=== PATIENT | female | born 1965 | race Caucasian/White ===

== ENCOUNTER 2016-09-30 12:45 | Emergency (ER) | payer OTHER ==
[~2016-09-30] VITALS: Ht 170.2 cm; Wt 77.1 kg
--- NOTE | 2016-09-30 13:39 | ED CARDIAC/CP/PALPITATIONS ---
See Addendum History of Present Illness General Chief Complaint: Chest Pain Stated Complaint: CP Source: patient Exam Limitations: no limitations Vital Signs & Intake/Output Vital Signs & Intake/Output Vital Signs Date Time Temp Pulse Resp B/P B/P Pulse O2 O2 Flow FiO2 Mean Ox Delivery Rate 09/30 1856 98.6 81 18 120/62 98 Room Air 09/30 1750 98.5 84 18 121/58 98 Room Air 09/30 1253 97.5 80 16 146/84 99 Room Air Allergies Coded Allergies: No Known Allergies (09/30/16) Reconcile Medications No Known Home Medications Triage Note: PT STATES SHE IS HAVING CHEST PAIN AND STATES SHE FEELS LIKE HER HEART IS SPEADING UP AND SLOWING DOWN. PT DENIES SOB OR DIAPHORESIS BUT DID FEEL SOB. PAIN DID NOT RADIATE Triage Nurses Notes Reviewed? yes Onset: Abrupt Duration: hour(s): (1130 am), intermittent Timing: recent history Location: central Radiation: no radiation Activities at Onset: none HPI: 50-year-old female comes into emergency room with complaints of chest pain has been going on intermittently since about 11:30 AM this morning. Pain is sharp. pain nonRadiating. Denies any arm pain or neck pain or jaw pain. Denies any shortness of breath or prior cardiac history. Denies any past medical history. Nonsmoker. Denies any significant family history for any type of coronary disease less than 55 years of age. Patient reports that she was sitting at the computer when the pain began. Exertion does not seem to make it worse. Patient was given 2 full-strength aspirins. (TUSHAR JOSÉ) Past History Travel History Traveled to [place] past 21 day No Medical History Any Pertinent Medical History? none Surgical History Surgical History: non-contributory Psychosocial History What is your primary language Moh[place] Tobacco Use: Never used ETOH Use: occasional use Illicit Drug Use: denies illicit drug use Family History Hx Contributory? Yes (see hpi) (TUSHAR JOSÉ) Review of Systems Review of Systems Constitutional: Reports: no symptoms. EENTM: Reports: no symptoms. Respiratory: Reports: no symptoms. Cardiovascular: Reports: see HPI. GI: Reports: no symptoms. Genitourinary: Reports: no symptoms. Musculoskeletal: Reports: no symptoms. Skin: Reports: no symptoms. Neurological/Psychological: Reports: no symptoms. Hematologic/Endocrine: Reports: no symptoms. Immunologic/Allergic: Reports: no symptoms. All Other Systems: Reviewed and Negative (TUSHAR JOSÉ) Physical Exam Physical Exam General Appearance: well developed/nourished, no apparent distress, alert, awake Head: atraumatic, normal appearance Eyes: Bilateral: normal appearance, EOMI. Ears, Nose, Throat: normal pharynx, normal ENT inspection, hearing grossly normal Neck: normal inspection, full range of motion Respiratory: normal breath sounds, no respiratory distress Cardiovascular: regular rate/rhythm Gastrointestinal: soft Back: normal inspection Extremities: normal inspection, normal range of motion, no edema Neurologic/Psych: awake, alert, oriented x 3, normal gait, normal mood/affect Skin: intact, normal color Core Measures ACS in differential dx? Yes Severe Sepsis Present: No Septic Shock Present: No (TUSHAR JOSÉ) Progress Differential Diagnosis: AMI, aortic dissection, atrial fibrillation, cholecystitis, costochondritis, hyperkalemia, hypovolemia, musculoskeletal pain, myocarditis, pancreatitis, pericarditis, pneumonia, pneumothorax, pulmonary embolism, PUD/GERD, PVCs/PACs, respiratory failure, rib fracture, sepsis, unstable angina, V-fib/V-Tach, WPW syndrome Plan of Care: Orders Procedure Date/time Status TROPONIN LEVEL 09/30 1745 Complete EKG 09/30 1745 Active Telemetry/Automotive Mechanic 09/30 1338 Active D-DIMER 09/30 1338 Complete TROPONIN LEVEL 09/30 1257 Complete COMPREHENSIVE METABOLIC PANEL 09/30 1257 Complete CBC WITHOUT DIFFERENTIAL 09/30 1257 Complete EKG 09/30 1245 Active Laboratory Tests 09/30/16 1749: Troponin I < 0.01 09/30/16 1345: Anion Gap 12, Estimated GFR > 60, BUN/Creatinine Ratio 15.7, Glucose 78, Calcium 9.2, Total Bilirubin 0.8, AST 22, ALT 39, Alkaline Phosphatase 63, Troponin I < 0.01, Total Protein 7.3, Albumin 4.6, Globulin 2.7, Albumin/Globulin Ratio 1.7, D-Dimer < 200 09/30/16 1257: CBC w Diff NO MAN DIFF REQ, RBC 4.51, MCV 90.1, MCH 30.6, RDW 12.7, MPV 8.8, Gran % 68.5, Lymphocytes % 21.0, Monocytes % 9.0, Eosinophils % 1.2, Basophils % 0.3, Absolute Granulocytes 4.1, Absolute Lymphocytes 1.3, Absolute Monocytes 0.5 , Absolute Eosinophils 0.1, Absolute Basophils 0, PUBS MCHC 34.0 Diagnostic Imaging: Viewed by Me: Radiology Read. Discussed w/RAD: Radiology Read. Radiology Impression: SERVICE DATE: 09/30/16 EXAM TYPE: RAD - XRY-CHEST XRAY, PA AND LATERAL EXAMINATION: XR CHEST CLINICAL INFORMATION: Chest pain COMPARISON: None TECHNIQUE: 2 views of the chest were obtained. FINDINGS: Lungs are well expanded and clear. No pulmonary edema, pneumothorax or pleural effusion. Cardiac silhouette is normal in size. Mediastinal and hilar contours are normal. Bones are unremarkable. IMPRESSION: No acute cardiopulmonary abnormality. DICTATED BY: COLE JENNINGS MD DATE/TIME DICTATED:09/30/161440 STUDIO TECHNICIAN VIDEO OPERATOR:DAYAMI DATE/TIME TRANSCRIBED:09/30/161440 Initial ED EKG: normal intervals, normal p-waves, normal QRS complex, normal sinus rhythm, rate (100) Comments: 09/30/2016 4:46:04 PM Upon reevaluating the patient she is currently and no chest pain. Case was discussed with Dr. Kang from cardiology. He agrees with plan of care of 2 EKGs and 2 troponins. Patient can follow-up with Dr. Rock in the office this week. 09/30/2016 7:50:30 PM Patient is still chest pain-free. Second troponin negative. Case discussed with Dr. Busby. Patient will follow up as an outpatient this week. Return if any other concerns. 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 Return to the emergency room if any concerns worsening symptoms. Please go over all results of today's visit with your primary care doctor. Contact your primary care doctor to let them know you were here in the emergency room. There may be nonspecific findings which may not be related to your visit today here in the emergency room but may require further evaluation and chronic monitoring by your primary care doctor. If you had a laceration today the chance of foreign body always remains. You should follow-up with your primary care doctor for recheck in 3-5 days for a wound check. If you had an x-ray done there is a chance that a fracture could have been missed on initial read and you should follow-up with your primary care doctor for repeat x-rays if symptoms persist. If your blood pressure was elevated here in the emergency room please have rechecked by her primary care doctor within the next 48 hours by your primary care doctor. If you were prescribed a narcotic here in the emergency room or any type of controlled substances you're not allowed to drive while taking this medication or operate any type of heavy machinery. Narcotics can make you feel lightheaded dizziness nausea and can cause constipation. You may need to rock picker a stool softener. Thank you for choosing [facility] emergency room. Please return to the emergency room immediately if you have any other concerns worsening of symptoms. Departure Forms: Customer Survey General Discharge Information Prescriptions: Current Visit Scripts No Known Home Medications (TUSHAR JOSÉ) PA/AUTOMATIC CENTRIFUGAL STATION OPERATOR Co-Sign Statement Statement: ED Attending supervision documentation- [] I saw and evaluated the patient. I have also reviewed all the pertinent lab results and diagnostic results. I agree with the findings and the plan of care as documented in the PA's/AUTOMATIC CENTRIFUGAL STATION OPERATOR's documentation. [X] I have reviewed the ED Record and agree with the PA's/AUTOMATIC CENTRIFUGAL STATION OPERATOR's documentation. [] Additions or exceptions (if any) to the PAs/AUTOMATIC CENTRIFUGAL STATION OPERATOR's note and plan are summarized below: [] (GALILEA NORTH,REZA Pierre) Critical Care Note Critical Care Note Critical Care Time: non-applicable (TUSHAR JOSÉ)
[2016-09-30 13:51] LABS: ABSOLUTE BASOPHIL COUNT 0 /CUMM (0.0-0.2); ABSOLUTE EOSINOPHIL COUNT 0.1 /CUMM (0.0-0.7); ABSOLUTE GRANULOCYTE CT 4.1 /CUMM (1.4-6.5); ABSOLUTE LYMPH COUNT 1.3 /CUMM (1.2-3.4); ABSOLUTE MONOCYTE COUNT 0.5 /CUMM (0.10-0.60); BASOPHIL % 0.3 % (0.0-2.0); EOSINOPHIL % 1.2 % (0-5); GRANULOCYTE % 68.5 % (42.2-75.2); HEMATOCRIT 40.7 % (37-47); MEAN CORPUSCULAR HGB 30.6 PG (27.0-31.0); MEAN CORPUSCULAR VOLUME 90.1 FL (81.0-99.0); MEAN PLATELET VOLUME 8.8 FL (7.4-10.4); PLATELET COUNT 206 /CUMM (130-400); RBC DISTRIBUTION WIDTH 12.7 % (11.5-14.5); RED BLOOD CELL CT 4.51 /CUMM (4.20-5.40)
--- NOTE | 2016-09-30 14:46 | RADIOLOGY REPORT ---
EXAMINATION: XR CHEST CLINICAL INFORMATION: Chest pain COMPARISON: None TECHNIQUE: 2 views of the chest were obtained. FINDINGS: Lungs are well expanded and clear. No pulmonary edema, pneumothorax or pleural effusion. Cardiac silhouette is normal in size. Mediastinal and hilar contours are normal. Bones are unremarkable. IMPRESSION: No acute cardiopulmonary abnormality.
[2016-09-30 18:56] VITALS: BP 120/62
== END 2016-09-30 18:56 ==
LOC: ERH 12:45
PROVIDERS: Emergency Medicine
DX: R07.89 Other chest pain (principal)
CPT/HCPCS: 93005; 93010